=== PATIENT | female | born 1985 | race Two or more races ===

== ENCOUNTER 2017-04-18 16:48 | Outpatient (CLI) | payer OTHER ==
--- NOTE | 2017-04-19 23:00 | XRAY Report ---
EXAM: RIGHT ANKLE RADIOGRAPHY EXAM DATE: 04/18/2017 05:22 PM. CLINICAL HISTORY: PROGRESSIVE FOOT PAIN AND RIGHT ANKLE. COMPARISON: None. TECHNIQUE: 3 views. FINDINGS: Bones: Normal. No fractures or bone lesions. Joints: Normal. No effusion. No subluxations. The ankle mortise is normally aligned. Soft Tissues: Normal. No soft tissue swelling. IMPRESSION: Normal ankle radiography. [facility] Referring Provider Line: [phone] SITE ID: [id number]
--- NOTE | 2017-04-19 23:47 | XRAY Report ---
EXAMS: 1. Right Foot Radiography 2. Left Foot Radiography EXAM DATE: 04/18/2017 05:24 PM. CLINICAL HISTORY: PROGRESSIVE FOOT PAIN AND RIGHT ANKLE. COMPARISON: None. TECHNIQUE: 3 views each foot. FINDINGS: Right: Bones: Normal. No fractures or bone lesions. Joints: Normal. No subluxations. Soft Tissues: Normal. No soft tissue swelling. Left: Bones: Normal. No fractures or bone lesions. Joints: Normal. No subluxations. Soft Tissues: Normal. No soft tissue swelling. IMPRESSION: Normal bilateral feet radiography. [facility] Referring Provider Line: [phone] SITE ID: [id number]
== END 2017-04-18 16:49 | disposition home or self-care (01) ==
LOC: DI 16:48
PROVIDERS: ATTEND Podiatrist
DX: M79.671 Pain in right foot (principal); M79.672 Pain in left foot; M25.571 Pain in right ankle and joints of right foot

== ENCOUNTER 2017-05-10 08:41 | Outpatient (CLI) | payer OTHER ==
--- NOTE | 2017-05-10 21:26 | MRI Report ---
EXAM: RIGHT HINDFOOT/MIDFOOT MRI WITHOUT CONTRAST EXAM DATE: 05/10/2017 10:14 AM. CLINICAL HISTORY: Medial bilateral foot pain radiating from the arch to the proximal region. COMPARISON: Radiograph 04/18/2017. TECHNIQUE: Multiplanar, multisequence T1-weighted and fluid-sensitive sequences of the hindfoot/midfo ot without contrast. Other: None. FINDINGS: Bones: There is mild osteophyte formation and periarticular marrow edema of the first metatarsophala ngeal joint. Articular Cartilage: Unremarkable. Ligaments: The visualized intertarsal, intermetatarsal, and tarsometatarsal ligaments are intact. Thi s includes the Lisfranc ligament. The visualized collateral ligaments are intact. The anterior and po sterior talofibular, anterior posterior tibiofibular, and calcaneofibular ligament are intact. The de ep and superficial deltoid ligaments are unremarkable. Tendons: The flexor and extensor tendons are unremarkable. Musculature: No edema or fatty atrophy. Other: No effusions. The visualized portion of the tarsal tunnel is unremarkable. No intermetatarsal bursitis. The subcutaneous tissues are unremarkable. IMPRESSION: 1. Mild osteoarthritis of the first metatarsophalangeal joint. [facility] MUSCULOSKELETAL RADIOLOGY SECTION Referring Provider Line: [phone] SITE ID: [id number]
--- NOTE | 2017-05-10 21:26 | MRI Report ---
EXAM: LEFT HINDFOOT/MIDFOOT MRI WITHOUT CONTRAST EXAM DATE: 05/10/2017 09:35 AM. CLINICAL HISTORY: Bilateral foot pain radiating from the medial arch to the proximal region. COMPARISON: None. TECHNIQUE: Multiplanar, multisequence T1-weighted and fluid-sensitive sequences of the hindfoot/midfo ot without contrast. Other: None. FINDINGS: Bones: Mild osteophyte and periventricular marrow edema in the first metatarsophalangeal joint. No fr actures. Articular Cartilage: Unremarkable. Ligaments: The visualized intertarsal, intermetatarsal, and tarsometatarsal ligaments are intact. Thi s includes the Lisfranc ligament. The visualized collateral ligaments are intact. Anterior and five piece expansion maker hand ior talofibular, posterior talofibular, and calcaneofibular ligaments are intact. Calcification in th e region of the anterior talofibular ligament indicates prior injury of that structure. The deep and superficial deltoid ligaments are intact. Tendons: The flexor and extensor tendons are unremarkable. Musculature: No edema or fatty atrophy. Other: No effusions. The visualized portion of the tarsal tunnel is unremarkable. No intermetatarsal bursitis. The subcutaneous tissues are unremarkable. Minimal plantar fasciitis is present. IMPRESSION: 1. Minimal plantar fasciitis. 2. Mild osteoarthritis of the first metatarsophalangeal joint. [facility] MUSCULOSKELETAL RADIOLOGY SECTION Referring Provider Line: [phone] SITE ID: [id number]
== END 2017-05-10 08:42 | disposition home or self-care (01) ==
LOC: DI 08:41
PROVIDERS: ATTEND Podiatrist
DX: M19.072 Primary osteoarthritis, left ankle and foot (principal); M19.071 Primary osteoarthritis, right ankle and foot; M72.2 Plantar fascial fibromatosis

== ENCOUNTER 2017-06-18 19:01 | Outpatient (CLI) | payer OTHER ==
--- NOTE | 2017-06-19 08:47 | Ultrasound Report ---
PELVIC ULTRASOUND: 06/18/2017 CLINICAL INDICATION: Excessive frequent menstruation, irregular cycle. The patient also reports IUD strings are missing. TECHNIQUE: Transabdominal pelvic ultrasound performed for global evaluation. Transvaginal pelvic ul trasound performed for detailed evaluation. Real-time scanning performed and static images obtained. FINDINGS: The uterus is anteverted, measuring 8.3 x 4.4 x 4.0 cm. The endometrial echo complex jimmy ures 18 mm. No IUD is seen in the endometrial canal. No focal myometrial lesion is seen. The right ovary measures 2.7 x 1.7 x 1.5 cm, and is unremarkable. The left ovary measures 3.2 x 2.4 x 1.7 cm, and demonstrates a small follicle. A small amount of free fluid is present. IMPRESSION: 1. NO EVIDENT IUD. 2. OTHERWISE, NORMAL PELVIC ULTRASOUND. JOB #: [id number] EXT JOB #:[id number]
== END 2017-06-18 19:02 | disposition home or self-care (01) ==
LOC: DI 19:01
PROVIDERS: ATTEND Registered Nurse
DX: N92.1 Excessive and frequent menstruation with irregular cycle (principal)
CPT/HCPCS: 76830; 76856

== ENCOUNTER 2017-06-29 13:41 | Outpatient (CLI) | payer OTHER ==
--- NOTE | 2017-06-29 16:29 | XRAY Report ---
EXAM: ABDOMEN RADIOGRAPHY EXAM DATE: 06/29/2017 02:04 PM. CLINICAL HISTORY: Displacement of intrauterine contraceptive device. COMPARISON: None. TECHNIQUE: 2 views. FINDINGS: Lung Bases: Clear as visualized. Bowel Gas Pattern: Within normal limits. Moderate colonic stool volume. No dilated loops or abnormal air-fluid levels. Free Air: None. Bones: Mild right convex curvature centered at L4-L5. Other: No IUD seen. Small interval phleboliths incidentally noted. IMPRESSION: IUD not seen. [facility] Referring Provider Line: [phone] SITE ID: [id number]
== END 2017-06-29 13:42 | disposition home or self-care (01) ==
LOC: DI 13:41
PROVIDERS: ATTEND Registered Nurse
DX: T83.32XA Displacement of intrauterine contraceptive device, initial encounter (principal)
CPT/HCPCS: 74020